=== PATIENT | female | born 1990 | race Hispanic/Latino ===

== ENCOUNTER 2019-10-21 09:51 | Day surgery (SDC) | payer BC ==
[2019-10-20 14:22] VITALS: BMI 33.0
[2019-10-21 11:42] LABS: BHCG - Serum Negative (NEGATIVE); Pregs Control Background? CLEAR/WHITE (CLR/WHITE); Pregs Control Bar Appear? YES (CONTROL BAR)
[2019-10-21] MEDS ORDERED: Fentanyl 100 MCG/2 ML VIAL ONE (11:56)
[2019-10-21] MEDS ORDERED: Midazolam HCl 2 mg/2 ml Vial ONE (11:56)
[2019-10-21] MEDS ORDERED: Ropivacaine 0.5% HCl/PF (150 MG/30 ML VIAL) ONE (12:02)
[2019-10-21] MEDS ORDERED: PROPOFOL 200 MG/20 ML VIAL ONE (12:02)
[2019-10-21] MEDS ORDERED: Succinylcholine Chloride 20 MG/ML 10 ml SYRINGE FS ONE (12:02)
[2019-10-21] MEDS ORDERED: Acetaminophen 325 MG TAB PO PRN (12:16)
[2019-10-21] MEDS ORDERED: Zolpidem Tartrate 5 MG TAB PO PRN (12:16)
[2019-10-21] MEDS ORDERED: Ropivacaine 0.2% 550 ML 550 ML NERVE BLCK SCH (12:16)
[2019-10-21] MEDS ORDERED: Ondansetron PF 4 MG/2 ML Vial IVP PRN (12:16)
[2019-10-21] MEDS ORDERED: Promethazine HCl 25 MG/ML VIAL IM PRN (12:16)
[2019-10-21] MEDS ORDERED: Fentanyl 100 MCG/2 ML VIAL IV PRN (12:17)
--- NOTE | 2019-10-21 15:23 | RAD ---
2 VIEWS RIGHT ELBOW: Date: 10/21/2019 PROVIDED CLINICAL HISTORY: Open reduction and internal fixation right elbow. FINDINGS: Two spot fluoroscopic views of the right elbow demonstrate interval internal fixation of previously d escribed proximal radial fracture with associated improved alignment. IMPRESSION: As above. POS: CHRISTIE
--- NOTE | 2019-10-22 12:04 | OP ---
DATE OF PROCEDURE: 10/21/2019 PREOPERATIVE DIAGNOSIS: Right radial head fracture. POSTOPERATIVE DIAGNOSIS: Right radial head fracture. PROCEDURE PERFORMED: Open reduction and internal fixation of right radial head. ANESTHESIA: General. INFORMATION SECURITY RISK ANALYST: Castillo. TOURNIQUET TIME: Approximately 65 minutes at 250 mmHg. IMPLANTS: Synthes 2.4 mm headless screws x2. COMPLICATIONS: None. DRAINS: None. SPECIMENS: None. OUTCOME: Satisfactory. INDICATIONS: The patient is a 29-year-old lady, status post wrestling injury sustaining a mildly displaced radial head fracture that encompassed approximately 30% to 35% of the articular surface of the radial head. Given this displacement and the size of the fracture, we have decided to proceed with an open reduction and internal fixation procedure. Informed consent has been obtained. I believe all questions have been answered. DESCRIPTION OF PROCEDURE: The patient was brought to the operating room and a time-out performed, followed by induction of general anesthesia. The patient was positioned supine and a sterile prep and drape was performed of the right upper extremity. Next, a linear incision was made basically extending from the lateral epicondyle obliquely across the lateral joint of the elbow heading towards the posterior shaft of the olecranon. After skin was sharply incised, dissection was carried down bluntly and exploiting the interval between the anconeus and the common extensor, this interval was opened and then the supinator was displaced distally gaining access to the capsule of the elbow. The capsule was opened revealing the underlying radial head. The arm was brought into full supination. At this point, the fracture could be visualized. There were actually 2 fracture fragments detached from the main portion of the radial head. Next, the initial fracture fragment was reduced and held in place and then a guidewire was passed across this fragment into the larger intact portion of the radial head. Measurement was taken off this pin and it was decided that size 16 headless screw would be of appropriate length. A drill was used just to broach the near cortex and then the screw was inserted and then buried under the surface of the radial head, approximately 1 mm. Next, the arm was brought into a bit more supination. The second fragment was reduced and then a second screw applied in the same fashion. At the completion of this, AP, lateral, and C-arm images showed anatomic alignment of the fracture and appropriate positioning of the hardware. The wound was then irrigated with normal saline and then wound closure performed. #1 Vicryl was used to reapproximate the joint capsule, followed by 0 Vicryl for the fascia between the common extensor and anconeus, then 2-0 Vicryl and manuel used for the skin. Xeroform gauze, Webril, and a long-arm posterior fiberglass splint was applied to the arm. The patient was then transferred to recovery room in stable condition. There were no complications. She tolerated the procedure well. Job ID: [id number]
== END 2019-10-21 15:39 | disposition home or self-care (01) ==
LOC: SDC 09:51
PROVIDERS: ATTEND Orthopaedic Surgery
PROC: 0PSH04Z Reposition Right Radius with Internal Fixation Device, Open Approach (ICD-10-PCS; principal; 2019-10-21)
PROC: 3E0T3BZ Introduction of Anesthetic Agent into Peripheral Nerves and Plexi, Percutaneous Approach (ICD-10-PCS; principal; 2019-10-21)
DX: S52.121A Displaced fracture of head of right radius, initial encounter for closed fracture (principal); W18.30XA Fall on same level, unspecified, initial encounter; G89.18 Other acute postprocedural pain
CPT/HCPCS: 76000; 84703; A4306; C1713; J0690; J2250; J2704; J2795; J3010

== ENCOUNTER 2019-10-22 10:08 | Day surgery (SDC) | payer BC ==
[~2019-10-22 10:08] MED LIST: Bupivacaine HCl 0.5%/Epinephrine 1:200,000/PF 30 ml Vial ONE; Ropivacaine 0.2% HCl/PF (40 MG/20 ML VIAL) ONE; Ropivacaine 0.5% HCl/PF (150 MG/30 ML VIAL) ONE
[2019-10-22] MEDS ORDERED: Lidocaine 1% (PF) 30 ML VIAL ONE (10:43)
[2019-10-22] MEDS ORDERED: Bupivacaine PF 0.5% 30 ML VIAL ONE (10:44)
[2019-10-22] MEDS ORDERED: Fentanyl 100 MCG/2 ML VIAL ONE (11:28)
[2019-10-22] MEDS ORDERED: Midazolam HCl 2 mg/2 ml Vial ONE (11:28)
== END 2019-10-22 12:50 | disposition home or self-care (01) ==
LOC: SDC 10:08
PROVIDERS: ATTEND Orthopaedic Surgery
PROC: 3E0T3BZ Introduction of Anesthetic Agent into Peripheral Nerves and Plexi, Percutaneous Approach (ICD-10-PCS; principal; 2019-10-22)
DX: S52.121A Displaced fracture of head of right radius, initial encounter for closed fracture (principal)
CPT/HCPCS: J2001; J2250; J3010; S0020

== ENCOUNTER 2020-12-31 09:00 | Outpatient (CLI) | payer BC, OTHER | END 2020-12-31 09:01 | disposition home or self-care (01) | LOC: BICRAD 09:00 | PROVIDERS: ATTEND Student in an Organized Health Care Education/Training Program | DX: M86.8X8 Other osteomyelitis, other site (principal) | CPT/HCPCS: 72170 ==

== ENCOUNTER 2021-12-26 13:47 | Outpatient (CLI) | payer BC | END 2021-12-26 13:48 | disposition home or self-care (01) | LOC: BICMRI 13:47 | PROVIDERS: ATTEND Nurse Practitioner Family | DX: S89.91XD Unspecified injury of right lower leg, subsequent encounter (principal); S83.511A Sprain of anterior cruciate ligament of right knee, initial encounter ==

== ENCOUNTER 2022-01-31 15:45 | Outpatient (CLI) | payer BC, OTHER ==
[2022-01-31 17:02] LABS: #Basophils 0.1 10x3/uL (0.0-0.2); #Eosinphils 0.3 10x3/uL (0.0-0.5); #Monocytes 0.6 10x3/uL (0.0-1.1); #Neutrophils 5.8 10x3/uL (1.5-8.4); %Basophils 0.6 % (0.0-2.0); %Eosinophils 3.1 % (0.0-6.0); %Lymphocytes 25.3 % (18.0-47.0); %Neutrophils 63.9 % (40.0-75.0); Hemoglobin 12.8 g/dL (12.0-15.5); Mean Corpuscular HGB CONC 31.8 g/dL (32.0-36.0); Mean Corpuscular Hemoglobin 24.7 pg (27.0-33.0); Mean Corpuscular Volume 77.5 fl (81.6-98.3); Mean Platelet Volume 12.1 fl (7.4-10.4); Platelet Count 259 10x3/uL (150-450); RBC Distribution Width 13.8 % (11.5-14.5); Red Blood Cell (RBC) Count 5.19 10x6/uL (3.90-5.03); White Blood Cell (WBC) Count 9.1 10x3/uL (3.5-10.5)
[2022-01-31 17:31] LABS: Anion Gap 14 mmol/L (10-20); BUN (Urea Nitrogen) 5 mg/dL (7.0-18.7); Calc. Creatinine Clearance 0 mL/min (70-130); Calcium 9.3 mg/dL (7.8-10.44); Carbon Dioxide 25 mmol/L (22-29); Chloride 105 mmol/L (98-107); Estimated GFR 111; Glucose 83 mg/dL (70-105); Sodium 140 mmol/L (136-145)
[2022-01-31 17:39] LABS: BHCG - Serum Negative (NEGATIVE); Pregs Control Background? CLEAR/WHITE (CLR/WHITE); Pregs Control Bar Appear? YES (CONTROL BAR)
== END 2022-01-31 15:46 | disposition home or self-care (01) ==
LOC: LABBT 15:45
PROVIDERS: ATTEND Orthopaedic Surgery
DX: Z01.812 Encounter for preprocedural laboratory examination (principal); S83.511A Sprain of anterior cruciate ligament of right knee, initial encounter; Z20.822 Contact with and (suspected) exposure to COVID-19
CPT/HCPCS: 80048; 84703; 85025; 87811

== ENCOUNTER 2022-02-03 05:58 | Observation (INO) | payer BC ==
[2022-02-01 15:58] VITALS: BMI 34.0
[2022-02-03] MEDS ORDERED: Vancomycin (BATCH) 1.5 GRAM/300 ML BAG ONE (06:41)
[2022-02-03] MEDS ORDERED: fentaNYL Citrate/PF 100 MCG/2 ML SYRINGE ONE (06:46)
[2022-02-03] MEDS ORDERED: Midazolam HCl 2 mg/2 ml Vial ONE (07:12)
[2022-02-03] MEDS ORDERED: Sodium Chloride 0.9% 100 ML ONE (07:14)
[2022-02-03] MEDS ORDERED: CEFAZOLIN 2 GM VIAL ONE (07:14)
[2022-02-03] MEDS ORDERED: diphenhydrAMINE 50 MG CAP PO PRN (07:42)
[2022-02-03] MEDS ORDERED: Ondansetron PF 4 MG/2 ML Vial IVP PRN ×2 (07:42→07:45)
[2022-02-03] MEDS ORDERED: HYDROcodone/Acetaminophen 7.5/325 mg Tablet PO PRN ×2 (07:42)
[2022-02-03] MEDS ORDERED: Methocarbamol 500 MG TAB PO PRN (07:42)
[2022-02-03] MEDS ORDERED: Acetaminophen 500 MG TAB PO PRN (07:42)
[2022-02-03] MEDS ORDERED: Bisacodyl 10 MG SUPP PR PRN (07:42)
[2022-02-03] MEDS ORDERED: Milk Of Magnesia 30 ML UDCUP PO PRN (07:42)
[2022-02-03] MEDS ORDERED: Morphine 2 MG/ML VIAL SLOW IVP PRN (07:42)
[2022-02-03] MEDS ORDERED: traMADol HCl 50 MG TAB PO PRN ×3 (07:42→07:45)
[2022-02-03] MEDS ORDERED: Promethazine HCl 25 MG/ML VIAL IM PRN ×2 (07:45→09:28)
[2022-02-03] MEDS ORDERED: Ropivacaine 0.2% 550 ML 550 ML NERVE BLCK SCH (07:45)
[2022-02-03] MEDS ORDERED: Phenylephrine 10 MG/ML VIAL ONE (07:45)
[2022-02-03] MEDS ORDERED: HYDROcodone/Acetaminophen 5/325 mg Tablet PO PRN (07:45)
[2022-02-03] MEDS ORDERED: Dexamethasone 20 MG/5 ML VIAL ONE (07:45)
[2022-02-03] MEDS ORDERED: Lidocaine 1% PF 5 ML VIAL ONE (07:45)
[2022-02-03] MEDS ORDERED: Zolpidem Tartrate 5 MG TAB PO PRN (07:45)
[2022-02-03] MEDS ORDERED: PROPOFOL 200 MG/20 ML VIAL ONE (07:45)
[2022-02-03] MEDS ORDERED: Ondansetron PF 4 MG/2 ML Vial ONE (07:45)
[2022-02-03] MEDS ORDERED: ceFAZolin 2 GM/Dextrose 50 ML 2 GM in Premix Bag 1 BAG IVPB SCH (07:45)
[2022-02-03] MEDS ORDERED: Bupivacaine HCl 0.5%/Epinephrine 1:200,000/PF 30 ml Vial ONE (07:45)
[2022-02-03] MEDS ORDERED: Ondansetron HCl/PF 4 MG/2 ML Vial IVP PRN (09:28)
[2022-02-03] MEDS ORDERED: Promethazine HCl 25 MG/ML VIAL IVPB PRN (09:28)
[2022-02-03] MEDS ORDERED: Fentanyl 100 MCG/2 ML VIAL ONE ×2 (09:35→10:02)
[2022-02-03] MEDS ORDERED: Ketorolac Tromethamine 30 MG/ML VIAL IVP SCH (12:00)
[2022-02-03] MEDS: Ketorolac Tromethamine 30 MG/ML VIAL IVP PRN ×2 (15:00→21:03)
[2022-02-03] MEDS: CEFAZOLIN 2 GM in Sodium Chloride 0.9% 100 ML IVPB SCH ×2 (15:01→21:01)
[2022-02-03] MEDS: HYDROcodone/Acetaminophen 5/325 mg Tablet PO PRN ×2 (15:11→21:02)
[2022-02-03] MEDS: Famotidine 20 MG TAB PO SCH ×2 (19:47→21:03)
[2022-02-03] MEDS: Dextrose 5 %-0.45 % NaCl 1,000 ML IV SCH (19:48)
[2022-02-04] MEDS: Dextrose 5 %-0.45 % NaCl 1,000 ML IV SCH ×2 (02:36→08:32)
[2022-02-04] MEDS: Famotidine 20 MG TAB PO SCH (08:26)
[2022-02-04] MEDS: HYDROcodone/Acetaminophen 5/325 mg Tablet PO PRN (08:27)
[2022-02-04 09:31] VITALS: BP 115/75; TEMP 97.8
== END 2022-02-04 13:19 | disposition home or self-care (01) ==
LOC: SDC 05:58 → SJJU 14:38
PROVIDERS: ADMIT Orthopaedic Surgery; ATTEND Orthopaedic Surgery
PROC: 0MRN47Z Replacement of Right Knee Bursa and Ligament with Autologous Tissue Substitute, Percutaneous Endoscopic Approach (ICD-10-PCS; principal; 2022-02-03)
PROC: 3E0T3BZ Introduction of Anesthetic Agent into Peripheral Nerves and Plexi, Percutaneous Approach (ICD-10-PCS; 2022-02-03)
DX: S83.511A Sprain of anterior cruciate ligament of right knee, initial encounter (principal); X58.XXXA Exposure to other specified factors, initial encounter
CPT/HCPCS: A4306; C1713; C1776; C1898; J0690; J1100; J1885; J2250; J2370; J2405; J2704; J2795; J3010; J3370; J3490

== ENCOUNTER 2022-02-05 06:17 | Emergency (ER) | payer BC ==
[2022-02-05] MEDS ORDERED: Morphine 4 MG/ML VIAL ONE (06:46)
[2022-02-05] MEDS ORDERED: Ondansetron PF 4 MG/2 ML Vial ONE ×2 (06:46→07:25)
[2022-02-05] MEDS ORDERED: Ketorolac Tromethamine 30 MG/ML VIAL ONE (07:25)
== END 2022-02-05 08:15 | disposition home or self-care (01) ==
LOC: ERS 06:17
DX: G89.18 Other acute postprocedural pain (principal); M25.561 Pain in right knee; Z98.890 Other specified postprocedural states
CPT/HCPCS: 96374; 96375; 96376; J1885; J2270; J2405

== ENCOUNTER 2023-12-18 19:05 | Emergency (ER) | payer BC, OTHER | END 2023-12-18 19:25 | disposition left against medical advice (07) | LOC: ERS 19:05 | DX: Z53.21 Procedure and treatment not carried out due to patient leaving prior to being seen by health care provider (principal) ==

== ENCOUNTER 2024-06-17 13:08 | Emergency (ER) | payer BC | END 2024-06-17 14:07 | LOC: ERS 13:08 | DX: Z53.21 Procedure and treatment not carried out due to patient leaving prior to being seen by health care provider (principal) ==

== ENCOUNTER 2024-06-19 13:12 | Inpatient (IN) | payer BC ==
[2024-06-19 14:32] LABS: #Basophils Less than 0.03 10x3/uL (0.0-0.2); %Basophils 0.5 % (0.0-1.0); %Eosinophils 1.2 % (0.0-10.0); %Lymphocytes 7.6 % (21.0-51.0); %Monocytes 8.1 % (0.0-10.0); %Neutrophils 82.1 % (42.0-75.0); Hematocrit 41.2 % (36.0-47.0); Hemoglobin 13.1 g/dL (12.0-16.0); Mean Corpuscular HGB CONC 31.8 g/dL (32.0-36.0); Mean Corpuscular Hemoglobin 24.7 pg (27.0-31.0); Mean Corpuscular Volume 77.7 fL (78.0-98.0); Mean Platelet Volume 12.2 fL (7.4-10.4); Platelet Count 191 10x3/uL (130-400)
[2024-06-19 14:46] LABS: BHCG - Serum Negative (NEGATIVE); Pregs Control Background? CLEAR/WHITE (CLR/WHITE); Pregs Control Bar Appear? YES (CONTROL BAR)
[2024-06-19 14:48] LABS: ALT (SGPT) 264 U/L (8-55); AST (SGOT) 371 U/L (5-34); Alkaline Phosphatase 165 U/L (40-110); Anion Gap 15 mmol/L (10-20); BUN (Urea Nitrogen) 5 mg/dL (7.0-18.7); Bilirubin, Total 1.8 mg/dL (0.2-1.2); Calc. Creatinine Clearance 0 mL/min (70-130); Calcium 9.2 mg/dL (7.8-10.44); Carbon Dioxide 23 mmol/L (22-29); Chloride 104 mmol/L (98-107); Estimated GFR 117; Globulin 3.7 g/dL (2.4-3.5); Glucose 104 mg/dL (70-105); Lipase 22 U/L (8-78); Potassium 4.1 mmol/L (3.5-5.1); Protein, Total 7.7 g/dL (6.0-8.3); Sodium 138 mmol/L (136-145)
[2024-06-19] MEDS ORDERED: Ketorolac Tromethamine 30 MG (1 mL) VIAL ONE (15:18)
[2024-06-19] MEDS ORDERED: Ondansetron PF 4 MG/2 ML Vial ONE (15:18)
[2024-06-19] MEDS ORDERED: Morphine 4 MG/ML VIAL ONE (15:44)
[2024-06-19] MEDS ORDERED: Piperacillin/Tazobactam 4.5 GM VIAL ONE (15:45)
[2024-06-19] MEDS ORDERED: Sodium Chloride 0.9% 100 ML ONE (15:45)
[2024-06-19 16:14] LABS: Bacteria/HPF None Seen HPF (None Seen); Bilirubin 1+ (Negative); Blood, Urine 2+ (Negative); CAUTI Indications for Culture Dysuria,urgency,freq; Clarity Turbid (Clear); Glucose, Urine (Dipstick) Normal (Negative); Ketone, Urine 40 mg/dL (Negative); Leukocyte 75 Leu/uL (Negative); Nitrite Negative (Negative); Protein, Urine (Dipstick) Negative (Neg-Trace); RBC/HPF 0-3 HPF (0-3); Specific Gravity, Urine 1.014 (1.002-1.036); WBC/HPF 0-3 HPF (0-3)
[2024-06-19 16:15] LABS: Urine Culture Reflex No No
[2024-06-19] MEDS ORDERED: Calcium Carbonate 500 MG ChewTAB PO PRN (16:49)
[2024-06-19] MEDS ORDERED: Ipratropium/Albuterol 3 ML NEB NEB PRN (16:49)
[2024-06-19] MEDS ORDERED: Dextrose 5% in Water 1,000 ML IV PRN (16:49)
[2024-06-19] MEDS ORDERED: hydrALAZINE 20 MG/ML VIAL SLOW IVP PRN (16:49)
[2024-06-19] MEDS ORDERED: Promethazine HCl 25 MG/ML VIAL IM PRN (16:49)
[2024-06-19] MEDS ORDERED: Mag-Al 1200 mg/1200 mg/30 ML UDCUP PO PRN (16:49)
[2024-06-19] MEDS ORDERED: Dextrose 50% Abboject 50 ML SYRINGE SLOW IVP PRN (16:49)
[2024-06-19] MEDS ORDERED: Glucagon 1 MG/ML KIT IM PRN (16:49)
[2024-06-19] MEDS: Famotidine/PF 20 mg/2ml Vial SLOW IVP SCH (20:50)
[2024-06-19] MEDS: Famotidine 20 MG TAB PO SCH (20:50)
[2024-06-19] MEDS: Piperacillin/Tazobactam 3.375 GM in Sodium Chloride 0.9% 100 ML IVPB SCH (21:28)
[2024-06-19] MEDS: Lactated Ringer's 1,000 ML IV SCH (23:28)
[2024-06-19] MEDS: Ketorolac Tromethamine 30 MG (1 mL) VIAL IVP SCH (23:28)
[2024-06-20 00:17] VITALS: BMI 35.2
[2024-06-20 04:55] LABS: #Basophils Less than 0.03 10x3/uL (0.0-0.2); %Eosinophils 1.3 % (0.0-10.0); %Lymphocytes 24.8 % (21.0-51.0); %Monocytes 11.9 % (0.0-10.0); %Neutrophils 61.7 % (42.0-75.0); Hematocrit 36.9 % (36.0-47.0); Hemoglobin 11.8 g/dL (12.0-16.0); Mean Corpuscular Hemoglobin 25.3 pg (27.0-31.0); Mean Platelet Volume 11.7 fL (7.4-10.4); Platelet Count 153 10x3/uL (130-400); RBC Distribution Width 14.4 % (11.5-14.5); Red Blood Cell (RBC) Count 4.67 mill/uL (4.20-5.40)
[2024-06-20 05:11] LABS: ALT (SGPT) 257 U/L (8-55); AST (SGOT) 307 U/L (5-34); Albumin 3.4 g/dL (3.5-5.0); Alkaline Phosphatase 155 U/L (40-110); Anion Gap 9 mmol/L (10-20); BUN (Urea Nitrogen) 5 mg/dL (7.0-18.7); Calc. Creatinine Clearance 183 mL/min (70-130); Calcium 8.4 mg/dL (7.8-10.44); Carbon Dioxide 25 mmol/L (22-29); Chloride 107 mmol/L (98-107); Estimated GFR 118; Globulin 3.1 g/dL (2.4-3.5); Glucose 90 mg/dL (70-105); Potassium 4.1 mmol/L (3.5-5.1); Protein, Total 6.5 g/dL (6.0-8.3); Sodium 137 mmol/L (136-145)
[2024-06-20] MEDS ORDERED: Lidocaine 2% PF 5 ML VIAL ONE (06:42)
[2024-06-20] MEDS ORDERED: PROPOFOL 20 ML ONE (06:43)
[2024-06-20] MEDS ORDERED: Rocuronium Bromide 50 MG/5 ML VIAL ONE (06:47)
[2024-06-20] MEDS ORDERED: EPINEPHrine 1 MG/ML VIAL ONE (07:53)
[2024-06-20] MEDS ORDERED: Bupivacaine 0.25% HCL 30 ML VIAL ONE (07:53)
[2024-06-20] MEDS ORDERED: Indocyanine Green 25 MG/10 ML VIAL IVP SCH (08:30)
[2024-06-20] MEDS ORDERED: Midazolam HCl 2 mg/2 ml Vial ONE (08:41)
[2024-06-20] MEDS ORDERED: fentaNYL PF 100 MCG/2 ML SYRINGE ONE ×2 (08:41→09:39)
[2024-06-20] MEDS ORDERED: Indocyanine Green 25 MG/10 ML VIAL ONE (08:52)
[2024-06-20] MEDS ORDERED: Sodium Chloride 0.9% 100 ML ONE (08:53)
[2024-06-20] MEDS ORDERED: Dexamethasone 4 mg/ml Vial ONE (09:20)
[2024-06-20] MEDS ORDERED: Ondansetron PF 4 MG/2 ML Vial ONE (09:20)
[2024-06-20] MEDS ORDERED: SUGAMMADEX SODIUM 200 MG/2 ML VIAL ONE (09:26)
[2024-06-20] MEDS ORDERED: Fentanyl 250 MCG/5 ML VIAL ONE (10:33)
[2024-06-20] MEDS ORDERED: Promethazine HCl 25 MG/ML VIAL ONE (10:47)
[2024-06-20] MEDS ORDERED: Non-Formulary Medication 1 EACH PO PRN (11:11)
[2024-06-20] MEDS ORDERED: Promethazine HCl 25 MG/ML VIAL IM PRN (11:15)
[2024-06-20] MEDS ORDERED: Ondansetron HCl/PF 4 MG/2 ML Vial IVP PRN (11:15)
[2024-06-20] MEDS: traMADol HCl 50 MG TAB PO PRN (13:14)
[2024-06-20] MEDS: Acetaminophen 325 MG TAB PO PRN (13:15)
[2024-06-20] MEDS: Ondansetron PF 4 MG/2 ML Vial IVP PRN (23:04)
[2024-06-21 05:32] LABS: #Basophils Less than 0.03 10x3/uL (0.0-0.2); #Eosinophils Less than 0.03 10x3/uL (0.0-0.7); %Basophils 0.2 % (0.0-1.0); %Lymphocytes 14.2 % (21.0-51.0); %Monocytes 7.8 % (0.0-10.0); %Neutrophils 77.5 % (42.0-75.0); Hematocrit 34.6 % (36.0-47.0); Hemoglobin 10.7 g/dL (12.0-16.0); Mean Corpuscular HGB CONC 30.9 g/dL (32.0-36.0); Mean Corpuscular Hemoglobin 24.8 pg (27.0-31.0); Mean Corpuscular Volume 80.3 fL (78.0-98.0); Platelet Count 190 10x3/uL (130-400); RBC Distribution Width 14.4 % (11.5-14.5); Red Blood Cell (RBC) Count 4.31 mill/uL (4.20-5.40)
[2024-06-21 06:32] LABS: ALT (SGPT) 278 U/L (8-55); AST (SGOT) 282 U/L (5-34); Albumin 3.3 g/dL (3.5-5.0); Alkaline Phosphatase 149 U/L (40-110); Anion Gap 15 mmol/L (10-20); BUN (Urea Nitrogen) 9 mg/dL (7.0-18.7); Bilirubin, Total 0.8 mg/dL (0.2-1.2); Calc. Creatinine Clearance 168 mL/min (70-130); Calcium 8.4 mg/dL (7.8-10.44); Carbon Dioxide 22 mmol/L (22-29); Chloride 106 mmol/L (98-107); Estimated GFR 114; Globulin 3.1 g/dL (2.4-3.5); Glucose 104 mg/dL (70-105); Potassium 4.6 mmol/L (3.5-5.1); Protein, Total 6.4 g/dL (6.0-8.3); Sodium 138 mmol/L (136-145)
[2024-06-21 16:00] VITALS: BP 100/69; TEMP 97.8
== END 2024-06-21 16:54 | disposition home or self-care (01) | DRG 419 ==
LOC: ERS 13:12 → SURG A 16:53 → OBSVTOIN 06-21 11:56
PROVIDERS: ADMIT Surgery; ATTEND Surgery
PROC: 0FT44ZZ Resection of Gallbladder, Percutaneous Endoscopic Approach (ICD-10-PCS; principal; 2024-06-20)
PROC: 8E0W4CZ Robotic Assisted Procedure of Trunk Region, Percutaneous Endoscopic Approach (ICD-10-PCS; 2024-06-20)
PROC: BF131ZZ Fluoroscopy of Gallbladder and Bile Ducts using Low Osmolar Contrast (ICD-10-PCS; 2024-06-20)
DX: K80.00 Calculus of gallbladder with acute cholecystitis without obstruction (principal); Z79.899 Other long term (current) drug therapy
CPT/HCPCS: 36415; 76705; 80053; 81001; 83690; 84703; 85025; 88304; 96366; 96375; 96376; C1889; G0378; J0171; J0665; J1100; J1885; J2250; J2272; J2405; J2543; J2550; J2704; J3010; J3490; J7120; S2900